=== PATIENT | male | born 1950 ===

== ENCOUNTER 2016-11-16 08:12 | Day surgery (SDC) | payer OTHER, SELFPAY ==
[2016-11-16 08:31] VITALS: BMI 23.5
[2016-11-16] MEDS ORDERED: Propofol 10 mg/ml Inj (20 ML) ONE (09:08)
--- NOTE | 2016-11-16 09:10 | CP.SDSHP ---
Same Day Surgery H & P - History Proposed Procedure: colonoscopy Pre-Op Diagnosis: screening for colon cancer - Previous Medical/Surgical History Cardiac: Hypertension Pulmonary: Asthma - Allergies Allergies: Allergies No Known Allergies Allergy (Verified 08/11/16 02:49) - Current Medications Current Medications: see med list - Physical Exam General Appearance: NAD Vital Signs: Vital Signs 11/16/16 08:31 Temperature 98.4 F Pulse Rate 80 Respiratory 20 Rate Blood Pressure 137/91 H O2 Sat by Pulse 97 Oximetry Mental Status: Alert & Oriented x3 Heart: WNL Lungs: WNL GI: WNL - {Optional Preform as Required} Abdomen: WNL - Impression Impression: 66 year old male with h/o asthma, HTN here for screening colonoscopy Pt. Evaluated Today:Candidate for Anesthesia & Procedure: Yes - Date & Time Date: 11/16/16 Time: 09:10 Short Stay Discharge - Short Stay Discharge Admitting Diagnosis/Reason for Visit: ENCOUNTER FOR SCREENING FOR MALIGNANT NEOPLASM OF Disposition: HOME/ ROUTINE
[2016-11-16 10:08] VITALS: O2SAT 100
[2016-11-16 11:10] VITALS: BP 124/77; PULSE 76; RESP 10; TEMP 97.1
== END 2016-11-16 10:35 | disposition home or self-care (01) ==
LOC: C.ENDO 08:12
PROVIDERS: ATTEND Internal Medicine Gastroenterology
DX: Z12.11 Encounter for screening for malignant neoplasm of colon (principal); D12.3 Benign neoplasm of transverse colon; D12.4 Benign neoplasm of descending colon; D12.5 Benign neoplasm of sigmoid colon; K62.1 Rectal polyp; K57.90 Diverticulosis of intestine, part unspecified, without perforation or abscess without bleeding; K64.8 Other hemorrhoids
CPT/HCPCS: 45380; 45385; 88305; J2704

== ENCOUNTER 2017-03-29 16:57 | Emergency (ER) | payer OTHER ==
[2017-03-29 16:57] VITALS: BMI 25.5
[2017-03-29 17:20] VITALS: RESP 18
--- NOTE | 2017-03-29 20:15 | C.PDOC ---
History Of Present Illness 66 year old male presents to the ED for evaluation of right-sided neck muscle spasm which began around 3 days ago. He states pain is exacerbated by turning his head to the right. Patient took Lumbal without significant relief. He denies fever, chills, chest pain, extremity numbness/weakness. Time Seen by Provider: 03/29/17 19:16 Chief Complaint (Nursing): Back Pain History Per: Patient History/Exam Limitations: no limitations Onset/Duration Of Symptoms: Days (3) Current Symptoms Are (Timing): Still Present Quality Of Discomfort: "Pain" Pain Scale Rating Of: 7 Previous Symptoms: Neck Pain Associated Symptoms: denies: Incontinence, New Weakness, New Numbness Exacerbating Factor(s): Turning, Movement Recent travel outside of the [place]: No Past Medical History Reviewed: Historical Data, Nursing Documentation, Vital Signs Vital Signs: Last Vital Signs Temp 98.1 F 03/29/17 20:24 Pulse 86 03/29/17 20:24 Resp 18 03/29/17 20:24 BP 159/99 H 03/29/17 20:24 Pulse Ox 96 03/29/17 20:41 - Medical History PMH: Asthma, Bronchitis, HTN, Hypercholesterolemia Denies: Chronic Kidney Disease Surgical History: No Surg Hx Family History: States: Unknown Family Hx - Social History Hx Alcohol Use: Yes Hx Substance Use: No - Immunization History Hx Tetanus Toxoid Vaccination: No Hx Influenza Vaccination: No Hx Pneumococcal Vaccination: Yes (''Four yrs ago'') Review Of Systems Except As Marked, All Systems Reviewed And Found Negative. Constitutional: Negative for: Fever, Chills Cardiovascular: Negative for: Chest Pain Musculoskeletal: Positive for: Neck Pain Neurological: Negative for: Weakness, Numbness Physical Exam - Physical Exam Appears: Non-toxic, No Acute Distress Skin: Normal Color, Warm, Dry, No Rash Head: Atraumatic, Normacephalic Eye(s): bilateral: Normal Inspection, PERRL, EOMI Ear(s): Bilateral: Normal Oral Mucosa: Moist Throat: No Erythema, No Exudate Neck: Decreased ROM (secondary to pain), Paracervical Tenderness (right-sided ) , Supple Lymphatic: No Adenopathy Chest: Symmetrical, No Deformity, No Tenderness Cardiovascular: Rhythm Regular Respiratory: Normal Breath Sounds, No Stridor, No Wheezing Extremity: Normal ROM Neurological/Psych: Oriented x3, Normal Speech, Normal Cognition, Normal Motor, Normal Sensation Gait: Steady ED Course And Treatment O2 Sat by Pulse Oximetry: 96 (on RA) Pulse Ox Interpretation: Normal Progress Note: Patient received Flexeril PO and Toradol IM. Medical Decision Making Medical Decision Making: On re-exam, the patient reports improvement of symptoms. Lungs are CTA, heart is RRR, abdomen is soft, non-tender and patient is tolerating PO well. Ambulatory in the ED with steady gait. Follow up with the medical doctor within 1-2 days. return if worsened. Disposition - Disposition Referrals: [facility] [Outside] Disposition: HOME/ ROUTINE Disposition Time: 20:12 Condition: GOOD Additional Instructions: Follow up with the medical doctor/clinic within 1-2 days. return if worsened. Prescriptions: Cyclobenzaprine [Cyclobenzaprine HCl] 10 mg PO BID #14 tab Naproxen [Naprosyn] 500 mg PO BID #20 tab Forms: [employer] (Yoruba) Print Language: V[place] - Clinical Impression Clinical Impression: Cervical strain, Muscle spasm - PA / EMULSIFICATION OPERATOR / Resident Statement MD/DO has reviewed & agrees with the documentation as recorded. - Scribe Statement The provider has reviewed the documentation as recorded by the Scribe (Jana Quiles) All medical record entries made by the Scribe were at my direction and personally dictated by me. I have reviewed the chart and agree that the record accurately reflects my personal performance of the history, physical exam, medical decision making, and the department course for this patient. I have also personally directed, reviewed, and agree with the discharge instructions and disposition.
[2017-03-29 20:26] VITALS: BP 159/99; PULSE 86; TEMP 98.1
[2017-03-29 20:30] VITALS: O2SAT 96
== END 2017-03-29 20:25 | disposition home or self-care (01) ==
LOC: C.ER 16:57
DX: S16.1XXA Strain of muscle, fascia and tendon at neck level, initial encounter (principal); X58.XXXA Exposure to other specified factors, initial encounter; M62.838 Other muscle spasm
CPT/HCPCS: 96372; 99283; J1885